=== PATIENT | female | born 1935 | race Caucasian/White ===

== ENCOUNTER 2017-06-12 00:42 | Emergency (ER) | payer MEDICARE, BC ==
[2017-06-12 00:52] VITALS: BP 153/100; PULSE 81; RESP 18; TEMP 97.6; O2SAT 96
== END 2017-06-12 01:18 | disposition home or self-care (01) | DRG 948 ==
LOC: ED 00:42
DX: R53.1 Weakness (principal)
CPT/HCPCS: 99282